=== PATIENT | female | born 1990 | race American Indian/Alaskan Native ===

== ENCOUNTER 2019-04-14 21:32 | Emergency (ER) | payer OTHER ==
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
[2019-04-15 02:38] VITALS: BP 121/76
== END 2019-04-15 02:38 | disposition home or self-care (01) ==
LOC: ED 21:32
DX: R51 Headache (principal); Z79.899 Other long term (current) drug therapy
CPT/HCPCS: 70450

== ENCOUNTER 2019-04-18 22:34 | Emergency (ER) | payer OTHER ==
[2019-04-18 23:01] VITALS: BP 125/68
[2019-04-18] MEDS ORDERED: TYLENOL PO ONE (23:29)
[2019-04-18] MEDS ORDERED: BENADRYL PO ONE (23:29)
[2019-04-18] MEDS ORDERED: DECADRON IM ONE (23:29)
[2019-04-18] MEDS ORDERED: REGLAN PO ONE (23:29)
--- NOTE | 2019-04-19 00:01 | Emergency Department Report ---
ED Headache HPI - General Chief Complaint: Headache Stated Complaint: HEADACHE/BACK PAIN Time Seen by Provider: 04/18/19 23:28 - History of Present Illness Initial Comments: pt returns for headache x 1 month no new symptoms no new fall injury or trauma, pt has follow up pending with Neurology, rx naproxen, and fioricet prn headache, advised to take medications prescribed and follow up with neurology, pt advised symptoms are 3/10 improved from 4 days ago, same location , no decrease or loss of vision , no n/v , no dizziness no sob , no cp no neck pain , pt is a/ox 3 ambulatory to base per patient. Timing/Duration: other (1 month) Quality: moderate Head Injury Location: occipital Allergies/Adverse Reactions: Allergies No Known Allergies Allergy (Unverified 05/30/16 17:05) Home Medications: Ambulatory Orders medroxyPROGESTERone ACETATE [Provera] 10 mg PO QDAY #10 tablet 05/31/16 Butalb/Acetamin/Caff 50-325-40 [Fioricet] 1 tab PO Q6HR PRN #10 tab 04/15/19 Naproxen [Naprosyn] 500 mg PO BID #20 tablet 04/15/19 ED Review of Systems ROS: Stated complaint: HEADACHE/BACK PAIN Other details as noted in HPI Constitutional: denies: chills, fever Eyes: denies: eye pain, eye discharge, vision change ENT: denies: ear pain, throat pain Respiratory: denies: cough, shortness of breath, wheezing Cardiovascular: denies: chest pain, palpitations Endocrine: no symptoms reported Gastrointestinal: denies: abdominal pain, nausea, diarrhea Genitourinary: as per HPI Musculoskeletal: denies: back pain, joint swelling, arthralgia Skin: denies: rash, lesions Neurological: headache. denies: weakness, numbness, paresthesias, confusion, abnormal gait, vertigo Psychiatric: anxiety. denies: depression Hematological/Lymphatic: denies: easy bleeding, easy bruising ED Past Medical Hx - Past Medical History Previous Medical History?: No - Surgical History Past Surgical History?: No - Social History Smoking Status: Never Smoker Substance Use Type: None - Medications Home Medications: Home Medications Medication Instructions Recorded Confirmed Last Taken Type medroxyPROGESTERone ACETATE 10 mg PO QDAY #10 tablet 05/31/16 Unknown Rx [Provera] Butalb/Acetamin/Caff 50-325-40 1 tab PO Q6HR PRN #10 tab 04/15/19 Unknown Rx [Fioricet] Naproxen [Naprosyn] 500 mg PO BID #20 tablet 04/15/19 Unknown Rx ED Physical Exam - General Limitations: No Limitations General appearance: alert, in no apparent distress - Head Head exam: Present: atraumatic, normocephalic - Eye Eye exam: Present: normal appearance, PERRL, EOMI Pupils: Present: normal accommodation - ENT ENT exam: Present: normal orophraynx, mucous membranes moist, TM's normal bilaterally, normal external ear exam - Neck Neck exam: Present: normal inspection, full ROM. Absent: tenderness, meningismus, lymphadenopathy, thyromegaly - Expanded Neck Exam Expanded Neck exam: Absent: tenderness, midline deformity, anterior neck swelling, thyroid mass, carotid bruit, tracheal deviation - Respiratory Respiratory exam: Present: normal lung sounds bilaterally. Absent: respiratory distress, wheezes, stridor, chest wall tenderness - Cardiovascular Cardiovascular Exam: Present: regular rate, normal rhythm, normal heart sounds. Absent: systolic murmur, diastolic murmur, rubs, gallop - GI/Abdominal GI/Abdominal exam: Present: soft, normal bowel sounds. Absent: distended, tenderness, bruit, hernia - Rectal Rectal exam: Present: deferred - Extremities Exam Extremities exam: Present: normal inspection, full ROM, normal capillary refill. Absent: tenderness, pedal edema, joint swelling - Back Exam Back exam: Present: normal inspection, full ROM. Absent: tenderness, CVA tenderness (R), muscle spasm, paraspinal tenderness, vertebral tenderness, rash noted - Neurological Exam Neurological exam: Present: alert, oriented X3, CN II-XII intact, normal gait, reflexes normal. Absent: motor sensory deficit - Expanded Neurological Exam Expanded Patient oriented to: Present: person, place, time Speech: Present: fluid speech Cranial nerves: EOM's Intact: Normal, Gag Reflex: Normal, Tongue Deviation: Normal, Nystagmus: Normal, Facial Sensation: Normal Upper motor neuron: [place] Neglect: Normal, Pronator Drift: Normal Motor strength exam: RUE: 5, LUE: 5, RLE: 5, LLE: 5 Best Eye Response ([place]): (4) open spontaneously Best Motor Response ([place]): (6) obeys commands Best Verbal Response ([place]): (5) oriented [place] Total: 15 - Psychiatric Psychiatric exam: Present: normal affect, normal mood - Skin Skin exam: Present: warm, dry, intact, normal color. Absent: rash ED Course Vital Signs 04/18/19 22:55 Temperature 98.3 F Pulse Rate 97 H Respiratory 18 Rate Blood Pressure 125/68 O2 Sat by Pulse 93 Oximetry ED Medical Decision Making - Medical Decision Making headache x 1 month, improved, will follow up with neurology as directed, take naproxen and fiorcet as rx prn, pt verbalized agreement and understanding with same dc'd to home in stable condition at this time. Critical care attestation.: If time is entered above; I have spent that time in minutes in the direct care of this critically ill patient, excluding procedure time. ED Disposition Clinical Impression: Headache Qualifiers: Headache type: unspecified Headache chronicity pattern: acute headache Intractability: not intractable Qualified Code(s): R51 - Headache Disposition: DC-01 TO HOME OR SELFCARE Is pt being admited?: No Does the pt Need Aspirin: No Condition: Stable Instructions: Acute Headache (ED) Referrals: ELDER VAZ MD [Primary Care Provider] - 3-5 Days Forms: Work/School Release Form(ED) Time of Disposition: 00:02
== END 2019-04-19 00:05 | disposition home or self-care (01) ==
LOC: ED 22:34
DX: R51 Headache (principal); Z79.899 Other long term (current) drug therapy
CPT/HCPCS: 96372; 99282; J1100

== ENCOUNTER 2021-01-03 05:07 | Emergency (ER) | payer OTHER ==
[2021-01-03 05:42] LABS: Basophils % (Auto) 0.3 % (0.0-1.8); Eosinophils # (Auto) 0.1 K/mm3 (0.0-0.4); Eosinophils % (Auto) 1.1 % (0.0-4.3); Hemoglobin 12.4 gm/dl (10.1-14.3); Lymphocytes # (Auto) 2.9 K/mm3 (1.2-5.4); Lymphocytes % (Auto) 42.2 % (13.4-35.0); Mean Corpuscular HGB Conc 36 % (30-34); Mean Corpuscular Volume 92 fl (79-97); Monocytes # (Auto) 0.6 K/mm3 (0.0-0.8); Monocytes % (Auto) 9.3 % (0.0-7.3); Platelet Count 325 K/mm3 (140-440); Red Blood Count 3.81 M/mm3 (3.65-5.03); Red Cell Distribution Width 14.6 % (13.2-15.2)
[2021-01-03 06:02] LABS: Blood Urea Nitrogen 7 mg/dL (7-17); Calcium 9.1 mg/dL (8.4-10.2); Hemolysis Index 6
[2021-01-03 06:08] LABS: BUN/Creatinine Ratio 10
[2021-01-03 08:18] LABS: Bilirubin,Urine NEG (Negative); Blood,Urine MOD (Negative); Color,Urine Straw (Yellow); Protein,Urine <15 mg/dL mg/dL (Negative); Urobilinogen,Urine < 2.0 mg/dL (<2.0); WBC,Urine < 1.0 /HPF (0.0-6.0)
[2021-01-03 08:20] LABS: HCG Qualitative,Urine Negative (Negative)
--- NOTE | 2021-01-03 08:38 | Emergency Department Report ---
ED General Adult HPI - General Chief complaint: Vaginal Bleeding Stated complaint: VAGINAL BLEEDING Time Seen by Provider: 01/03/21 07:51 Source: patient Mode of arrival: Ambulatory Limitations: No Limitations - History of Present Illness Initial comments: 30-year-old -[place] female patient presents with complaints of abnormal vaginal bleeding for the past few months. Patient reports history of PCOS. She states she has been following with her HOUSEKEEPING/LAUNDRY SUPERVISOR for this abnormal bleeding. She is currently taking progesterone. Her last appointment was this past Saturday and she is scheduled for another appointment on 01/06/2021 where she is to have i maging performed of her fallopian tubes. She denies any heavy bleeding and states the bleeding is spotty and intermittent. No abdominal pain, vaginal discharge/dyspareunia, dysuria/hematuria, urinary frequency, fever/chills/sweats, stool changes, or history of cancer per patient. Patient also denies any blood thinner use - Related Data Home Medications Medication Instructions Recorded Confirmed Last Taken Progesterone 200 mg ONCE 01/03/21 01/03/21 4 Days Ago ~12/30/20 metFORMIN 500 mg BID 01/03/21 01/03/21 1 Day Ago ~01/02/21 Allergies Allergy/AdvReac Type Severity Reaction Status Date / Time No Known Allergies Allergy Unverified 05/30/16 17:05 ED Review of Systems ROS: Stated complaint: VAGINAL BLEEDING Other details as noted in HPI Constitutional: denies: chills, fever Respiratory: denies: cough, shortness of breath Cardiovascular: denies: chest pain Gastrointestinal: denies: abdominal pain, nausea, vomiting, diarrhea, constipation Genitourinary: abnormal menses. denies: urgency, dysuria, frequency, hematuria, discharge, dyspareunia Musculoskeletal: denies: back pain Skin: denies: lesions, change in color Hematological/Lymphatic: denies: easy bleeding ED Past Medical Hx - Past Medical History Previous Medical History?: Yes Additional medical history: PCOS - Surgical History Past Surgical History?: No - Social History Smoking Status: Never Smoker - Medications Home Medications: Home Medications Medication Instructions Recorded Confirmed Last Taken Type Progesterone 200 mg ONCE 01/03/21 01/03/21 4 Days Ago History ~12/30/20 metFORMIN 500 mg BID 01/03/21 01/03/21 1 Day Ago History ~01/02/21 ED Physical Exam - General Limitations: No Limitations General appearance: alert, in no apparent distress, obese - Head Head exam: Present: atraumatic, normocephalic - Eye Eye exam: Present: normal appearance. Absent: scleral icterus - Neck Neck exam: Present: normal inspection - Respiratory Respiratory exam: Absent: respiratory distress - Cardiovascular Cardiovascular Exam: Present: regular rate, normal rhythm - GI/Abdominal GI/Abdominal exam: Present: soft, normal bowel sounds. Absent: distended, tenderness, guarding, rebound, rigid - Neurological Exam Neurological exam: Present: alert, oriented X3, normal gait - Psychiatric Psychiatric exam: Present: normal affect, normal mood - Skin Skin exam: Present: warm, dry, intact, normal color. Absent: rash, cyanosis, diaphoretic, pallor ED Course Vital Signs 01/03/21 05:17 Temperature 98.0 F Pulse Rate 94 H Respiratory 18 Rate Blood Pressure 130/77 O2 Sat by Pulse 98 Oximetry ED Medical Decision Making - Lab Data Result diagrams: 01/03/21 05:18 01/03/21 05:18 Lab Results 01/03/21 01/03/21 01/03/21 Range/Units 05:18 05:18 05:18 WBC 6.9 (4.5-11.0) K/mm3 RBC 3.81 (3.65-5.03) M/mm3 Hgb 12.4 (10.1-14.3) gm/dl Hct 35.0 (30.3-42.9) % MCV 92 (79-97) fl MCH 33 H (28-32) pg MCHC 36 H (30-34) % RDW 14.6 (13.2-15.2) % Plt Count 325 (140-440) K/mm3 Lymph % (Auto) 42.2 H (13.4-35.0) % [place] % (Auto) 9.3 H (0.0-7.3) % Eos % (Auto) 1.1 (0.0-4.3) % Baso % (Auto) 0.3 (0.0-1.8) % Lymph # (Auto) 2.9 (1.2-5.4) K/mm3 [place] # (Auto) 0.6 (0.0-0.8) K/mm3 Eos # (Auto) 0.1 (0.0-0.4) K/mm3 Baso # (Auto) 0.0 (0.0-0.1) K/mm3 Seg Neutrophils % 47.1 (40.0-70.0) % Seg Neutrophils # 3.2 (1.8-7.7) K/mm3 Sodium 139 (137-145) mmol/L Potassium 4.1 (3.6-5.0) mmol/L Chloride 104.0 (98-107) mmol/L Carbon Dioxide 23 (22-30) mmol/L Anion Gap 16 mmol/L BUN 7 (7-17) mg/dL Creatinine 0.7 (0.6-1.2) mg/dL Estimated GFR > 60 ml/min BUN/Creatinine Ratio 10 % Glucose 83 (65-100) mg/dL Calcium 9.1 (8.4-10.2) mg/dL Urine Color (Yellow) Urine Turbidity (Clear) Urine pH (5.0-7.0) Ur Specific Bailey (1.003-1.030) Urine Protein (Negative) mg/dL Urine Glucose (UA) (Negative) mg/dL Urine Ketones (Negative) mg/dL Urine Blood (Negative) Urine Nitrite (Negative) Urine Bilirubin (Negative) Urine Urobilinogen (<2.0) mg/dL Ur Leukocyte Esterase (Negative) Urine WBC (Auto) (0.0-6.0) /HPF Urine RBC (Auto) (0.0-6.0) /HPF Urine HCG, Qual (Negative) Blood Type A POSITIVE Antibody Screen Negative 01/03/21 Range/Units 08:08 WBC (4.5-11.0) K/mm3 RBC (3.65-5.03) M/mm3 Hgb (10.1-14.3) gm/dl Hct (30.3-42.9) % MCV (79-97) fl MCH (28-32) pg MCHC (30-34) % RDW (13.2-15.2) % Plt Count (140-440) K/mm3 Lymph % (Auto) (13.4-35.0) % [place] % (Auto) (0.0-7.3) % Eos % (Auto) (0.0-4.3) % Baso % (Auto) (0.0-1.8) % Lymph # (Auto) (1.2-5.4) K/mm3 [place] # (Auto) (0.0-0.8) K/mm3 Eos # (Auto) (0.0-0.4) K/mm3 Baso # (Auto) (0.0-0.1) K/mm3 Seg Neutrophils % (40.0-70.0) % Seg Neutrophils # (1.8-7.7) K/mm3 Sodium (137-145) mmol/L Potassium (3.6-5.0) mmol/L Chloride (98-107) mmol/L Carbon Dioxide (22-30) mmol/L Anion Gap mmol/L BUN (7-17) mg/dL Creatinine (0.6-1.2) mg/dL Estimated GFR ml/min BUN/Creatinine Ratio % Glucose (65-100) mg/dL Calcium (8.4-10.2) mg/dL Urine Color Straw (Yellow) Urine Turbidity Clear (Clear) Urine pH 6.0 (5.0-7.0) Ur Specific Bailey 1.005 (1.003-1.030) Urine Protein <15 mg/dl (Negative) mg/dL Urine Glucose (UA) Neg (Negative) mg/dL Urine Ketones Neg (Negative) mg/dL Urine Blood Mod (Negative) Urine Nitrite Neg (Negative) Urine Bilirubin Neg (Negative) Urine Urobilinogen < 2.0 (<2.0) mg/dL Ur Leukocyte Esterase Neg (Negative) Urine WBC (Auto) < 1.0 (0.0-6.0) /HPF Urine RBC (Auto) 1.0 (0.0-6.0) /HPF Urine HCG, Qual Negative (Negative) Blood Type Antibody Screen - Medical Decision Making 30-year-old -[place] female patient presents with complaints of abnormal vaginal bleeding for the past few months. Patient reports history of PCOS. She states she has been following with her HOUSEKEEPING/LAUNDR[employer] SUPER[employer]OR for this abnormal bleeding. She is currently taking progesterone. Her last appointment was this past Saturday and she is scheduled for another appointment on 01/06/2021 where she is to have imaging performed of her fallopian tubes. She denies any heavy bleeding and states the bleeding is spotty and intermittent. No abdominal pain, vaginal discharge/dyspareunia, dysuria/hematuria, urinary frequency, fever/chills/sweats, stool changes, or history of cancer per patient. Patient also denies any blood thinner use H&H is normal. No signs of infection noted on UA. Urine negative. Physical exam and vitals are normal. Recommend patient follows up with her HOUSEKEEPING/LAUNDRY SUPERVISOR as scheduled 01/06/2021. She is stable for discharge home. Discussed signs symptoms that should prompt immediate return to the emergency department in detail with patient verbalizes understanding. Critical care attestation.: If time is entered above; I have spent that time in minutes in the direct care of this critically ill patient, excluding procedure time. ED Disposition Clinical Impression: Dysfunctional uterine bleeding Disposition: DC-01 TO HOME OR SELFCARE Is pt being admited?: No Condition: Stable Instructions: Abnormal Uterine Bleeding Additional Instructions: Please follow-up with your HOUSEKEEPING/LAUNDRY SUPERVISOR as scheduled for 01/06/2021 Time of Disposition: 08:34
[2021-01-03 08:57] VITALS: BP 129/80
== END 2021-01-03 08:56 | disposition home or self-care (01) ==
LOC: ED 05:07
DX: N93.8 Other specified abnormal uterine and vaginal bleeding (principal); Z79.899 Other long term (current) drug therapy
CPT/HCPCS: 36415; 80048; 81001; 81025; 85025; 86850; 86900; 86901

== ENCOUNTER 2021-11-23 16:07 | Emergency (ER) | payer OTHER ==
[2021-11-23 17:05] VITALS: BP 146/81
[2021-11-23 18:40] LABS: Basophils % (Auto) 0.4 % (0.0-1.8); Eosinophils # (Auto) 0.1 K/mm3 (0.0-0.4); Eosinophils % (Auto) 1.2 % (0.0-4.3); Hematocrit 33.6 % (30.3-42.9); Hemoglobin 11.5 gm/dl (10.1-14.3); Lymphocytes # (Auto) 3.2 K/mm3 (1.2-5.4); Lymphocytes % (Auto) 46.3 % (13.4-35.0); Mean Corpuscular HGB Conc 34 % (30-34); Mean Corpuscular Volume 93 fl (79-97); Monocytes # (Auto) 0.6 K/mm3 (0.0-0.8); Monocytes % (Auto) 9.2 % (0.0-7.3); Platelet Count 293 K/mm3 (140-440); Red Blood Count 3.61 M/mm3 (3.65-5.03); Red Cell Distribution Width 13.8 % (13.2-15.2)
[2021-11-23 18:53] LABS: BUN/Creatinine Ratio 8; Blood Urea Nitrogen 6 mg/dL (7-17); Calcium 9.6 mg/dL (8.4-10.2); Hemolysis Index 12
[2021-11-24] MEDS ORDERED: medroxyPROGESTERone ACETATE 5 MG TAB PO ONE (00:50)
[2021-11-24 01:11] LABS: Bacteria,Urine 1+ /HPF (Negative); Mucus,Urine FEW /HPF
[2021-11-24 01:12] LABS: Bilirubin,Urine Negative (Negative); Blood,Urine Large (Negative); Color,Urine Red (Yellow); WBC,Urine > 182.0 /HPF (0.0-6.0)
[2021-11-24 01:13] LABS: Urobilinogen,Urine < 2.0 mg/dL (<2.0)
[2021-11-24] MEDS ORDERED: LIDOCAINE-MPF (1%) 10 MG/1 ML VIAL 5 ML INFILTRATI ONE (01:33)
--- NOTE | 2021-11-24 02:19 | Emergency Department Report ---
ED Female HPI - General Chief complaint: Vaginal Bleeding Stated complaint: HEAVY BLEEDING NON STOP Source: patient Mode of arrival: Ambulatory Limitations: No Limitations - History of Present Illness Initial comments: Patient is a 31-year-old -[place] female with no past medical history who presents to the ED with complaint of acute onset persistent suprapubic pain, heavy vaginal bleeding and generalized weakness for the last 6 months. Patient states that the bleeding is complicated by large blood clots. Patient states that she has been evaluated by her [employer] physician, and was given a prescription of iron to take for chronic iron anemia due to blood loss but that despite these medications her symptoms have worsened. Patient states in the last 1 week, the symptoms have worsened and she contacted her [employer] physician who scheduled her for MRI in the next 1 week. Patient denies dizziness, syncope, chest pain or shortness of breath, dysuria, urinary frequency and urgency, diarrhea, nausea and vomiting, headache or back pain. MD Complaint: vaginal bleeding, pelvic pain -: Sudden, month(s) (6) Location: suprapubic Radiation: non-radiating Severity: severe Severity scale (0 -10): 8 Quality: cramping, aching Consistency: intermittent Improves with: none Worsens with: none Are you Now?: No Associated Symptoms: denies other symptoms, vaginal bleeding, abdominal pain (Suprapubic pressure). denies: vaginal discharge, nausea/vomiting, fever/ chills, headaches, loss of appetite, dysuria, rash, shortness of breath, syncope, weakness - Related Data Sexually active: Yes Home Medications Medication Instructions Recorded Confirmed Last Taken Progesterone 200 mg ONCE 01/03/21 01/03/21 4 Days Ago ~12/30/20 metFORMIN 500 mg BID 01/03/21 01/03/21 1 Day Ago ~01/02/21 Previous Rx's Medication Instructions Recorded Last Taken Type Ibuprofen [Motrin] 800 mg PO Q8HR PRN #30 tablet 11/24/21 Unknown Rx Sulfamethoxazole/Trimethoprim 1 each PO Q12H #20 tab 11/24/21 Unknown Rx [Bactrim DS TAB] medroxyPROGESTERone ACETATE 10 mg PO DAILY #14 tab 11/24/21 Unknown Rx [Provera] Allergies Allergy/AdvReac Type Severity Reaction Status Date / Time No Known Allergies Allergy Verified 11/24/21 00:57 ED Review of Systems ROS: Stated complaint: HEAVY BLEEDING NON STOP Other details as noted in HPI Constitutional: denies: chills, fever Eyes: denies: eye pain, eye discharge, vision change ENT: denies: ear pain, throat pain Respiratory: denies: cough, shortness of breath, wheezing Cardiovascular: denies: chest pain, palpitations Endocrine: no symptoms reported Gastrointestinal: abdominal pain (Mild suprapubic pain). denies: nausea, vomiting, diarrhea Genitourinary: denies: urgency, dysuria, discharge Musculoskeletal: denies: back pain, joint swelling, arthralgia Skin: denies: rash, lesions Neurological: denies: headache, weakness, paresthesias Psychiatric: denies: anxiety, depression Hematological/Lymphatic: denies: easy bleeding, easy bruising ED Past Medical Hx - Past Medical History Additional medical history: PCOS - Social History Smoking Status: Never Smoker - Medications Home Medications: Home Medications Medication Instructions Recorded Confirmed Last Taken Type Progesterone 200 mg ONCE 01/03/21 01/03/21 4 Days Ago History ~12/30/20 metFORMIN 500 mg BID 01/03/21 01/03/21 1 Day Ago History ~01/02/21 Ibuprofen [Motrin] 800 mg PO Q8HR PRN #30 tablet 11/24/21 Unknown Rx Sulfamethoxazole/Trimethoprim 1 each PO Q12H #20 tab 11/24/21 Unknown Rx [Bactrim DS TAB] medroxyPROGESTERone ACETATE 10 mg PO DAILY #14 tab 11/24/21 Unknown Rx [Provera] ED Physical Exam - General Limitations: No Limitations General appearance: alert, in no apparent distress - Head Head exam: Present: atraumatic, normocephalic, normal inspection - Eye Eye exam: Present: normal appearance, PERRL, EOMI Pupils: Present: normal accommodation - ENT ENT exam: Present: normal exam, normal orophraynx, mucous membranes moist, TM's normal bilaterally, normal external ear exam - Neck Neck exam: Present: normal inspection, full ROM. Absent: tenderness - Respiratory Respiratory exam: Present: normal lung sounds bilaterally. Absent: respiratory distress, wheezes, rales, rhonchi, chest wall tenderness, accessory muscle use, decreased breath sounds, prolonged expiratory - Cardiovascular Cardiovascular Exam: Present: regular rate, normal rhythm, normal heart sounds. Absent: systolic murmur, diastolic murmur, rubs, gallop - GI/Abdominal GI/Abdominal exam: Present: soft, tenderness (Palpable suprapubic tenderness), normal bowel sounds. Absent: guarding, rebound, hyperactive bowel sounds, hypoactive bowel sounds, organomegaly - Bi-manual exam: Present: other (Pelvic exam deferred) - Extremities Exam Extremities exam: Present: normal inspection, full ROM, normal capillary refill - Back Exam Back exam: Present: normal inspection, full ROM. Absent: tenderness, CVA tenderness (R), CVA tenderness (L), muscle spasm, paraspinal tenderness, vertebral tenderness - Neurological Exam Neurological exam: Present: alert, oriented X3, CN II-XII intact, normal gait, reflexes normal - Psychiatric Psychiatric exam: Present: normal affect, normal mood - Skin Skin exam: Present: warm, dry, intact, normal color. Absent: rash ED Course Vital Signs 11/23/21 17:03 Temperature 98.2 F Pulse Rate 95 H Respiratory 16 Rate Blood Pressure 146/81 [Left] O2 Sat by Pulse 97 Oximetry ED Medical Decision Making - Lab Data Result diagrams: 11/23/21 17:31 11/23/21 17:31 - Medical Decision Making This is a 31-year-old -[place] female with no past medical history who presents to the ED with complaint of acute onset persistent suprapubic pain, heavy vaginal bleeding and generalized weakness for the last 6 months. Patient states that the bleeding is complicated by large blood clots. Patient states that she has been evaluated by her [employer] physician, and was given a prescription of iron to take for chronic iron anemia due to blood loss but that despite these medications her symptoms have worsened. Patient states in the last 1 week, the symptoms have worsened and she contacted her [employer] physician who scheduled her for MRI in the next 1 week. In the ED, patient is alert and oriented x3 and is not in any distress. Lab test results were reviewed and are all nonactionable except for significant urinary tract infection in urinalysis. Patient was treated in the ED with Rocephin 1 g IM x1 and also received medroxyprogesterone 10 mg p.o. x1. On reevaluation, patient felt better and was discharged home medication and advised to follow-up with her [employer] physician as previously scheduled in 7 to 10 days for reevaluation. Patient was advised to return to the ED immediately if symptoms get worse. - Differential Diagnosis Dysfunction due to bleeding; UTI; ; uterine fibroids Critical care attestation.: If time is entered above; I have spent that time in minutes in the direct care of this critically ill patient, excluding procedure time. ED Disposition Clinical Impression: Dysfunctional uterine hemorrhage, Acute urinary tract infection Disposition: HOME / SELF CARE / HOMELESS Is pt being admited?: No Does the pt Need Aspirin: No Condition: Stable Instructions: Urinary Tract Infection, Adult, [id number], Menorrhagia, Menorrhagia, [id number], Abnormal Uterine Bleeding, [id number] Additional Instructions: All lab test results were reviewed and are all nonactionable except urinalysis that showed significant urinary tract infection and gross hematuria. Therefore take medications with food, drink plenty of fluids and follow-up with your [employer] physician in 7 to 10 days for reevaluation. Return to the ED immediately if symptoms get worse. Prescriptions: Sulfamethoxazole/Trimethoprim [Bactrim DS TAB] 1 each PO Q12H #20 tab Ibuprofen [Motrin] 800 mg PO Q8HR PRN #30 tablet PRN Reason: Pain , Severe (7-10) medroxyPROGESTERone ACETATE [Provera] 10 mg PO DAILY #14 tab Referrals: GISELA RENTERIA MD [Staff Physician] - 3-5 Days Time of Disposition: 02:19 Print Language: SPANISH
== END 2021-11-24 02:38 | disposition home or self-care (01) ==
LOC: ED 16:07
DX: N39.0 Urinary tract infection, site not specified (principal); N93.8 Other specified abnormal uterine and vaginal bleeding; Z79.899 Other long term (current) drug therapy
CPT/HCPCS: 36415; 80048; 81001; 84702; 85025; 96372; 99283; J0696; J3490